=== PATIENT | female | born 1980 | race American Indian/Alaskan Native ===

== ENCOUNTER 2017-02-22 07:14 | Emergency (ER) | payer MEDICAID ==
[2017-02-22 07:28] VITALS: BP 109/58
[2017-02-22] MEDS ORDERED: Sodium Chloride 0.9% 1,000 ML IV ONE (07:52)
[2017-02-22] MEDS ORDERED: Metoclopramide 10 MG/2 ML SDV IVPUSH ONE (07:53)
[2017-02-22] MEDS ORDERED: Ketorolac 30 MG/ML SDV IVPUSH ONE (07:54)
--- NOTE | 2017-02-23 15:22 | ER ---
DATE SEEN: 02/22/2017 HISTORY OF PRESENT ILLNESS: Pat is a 36-year-old woman, who works at [employer] last night and noticed she experienced diarrhea overnight, onset at 1900 hours yesterday, 02/21/2017. She did not vomit but had occasion to spit up. She did not eat anything unusual. Subsequently she had Doritos chips, as she did not think those would be the source for her epigastric discomfort and diarrhea. She had mild left lower quadrant abdominal discomfort and abdominal pain. Last menstrual period 1 week ago, approximately 02/15/2017. Menses are regular. She uses an IUD and is 7, para 5-2-0-5. PAST MEDICAL HISTORY: Significant for right ankle injury, gestational diabetes. Father has diabetes. Mother is alive and well. REVIEW OF SYSTEMS: HEENT: Denies dental problems, headache, neck stiffness, sore throat, sinus congestion. CARDIORESPIRATORY: Negative for shortness of breath, cough, or chest pain. No palpitations or irregular heartbeat. GI: No blood in her stool, no black tarry stools, constipation, previous abdominal surgery, low back pain, or kidney stone history. No frequency, urgency, or dysuria. MUSCULOSKELETAL: The patient states that she had total body myalgia last night, and she treated this with Tylenol. : She had an STD a long time ago. She has currently been with this same pelon for 3 months. She does not think she has an STD, but she gave it some thought. She denies arthritis or rashes. MEDICATIONS: None. ALLERGIES: Sulfa, TMP/SMX. SURGERIES: Negative. OTHER SERIOUS ILLNESSES: Negative. PHYSICAL EXAMINATION: VITAL SIGNS: Blood pressure 109/58, respirations 18, heart rate 102, temperature 36.7 degrees centigrade. CONSTITUTIONAL: The patient is in mild distress. Looks tired - She just finished work at [employer] overnight. HEENT: PERRLA intact. Pharynx is without abnormality. No erythema, no cervical adenopathy, no sinus pressure, no neck stiffness, no cervical adenopathy, no thyromegaly. LUNGS: Clear to auscultation without rales, rhonchi, or wheezes. HEART: S1, S2. Regular rate and rhythm. Tachycardia has relented. ABDOMEN: Soft. No guarding. Mild voluntary guarding left upper quadrant, right mid epigastrium, and left lower quadrant. No right lower quadrant discomfort. Mild suprapubic discomfort. Bowel sounds are slightly increased. No distention. No tinkles. No heel tap rebound. PELVIC: Not performed. No CVA or percussion tenderness. WORKING DIAGNOSES: Possible urinary tract infection, renal stones, , pyelo, enteritis - with diarrhea. LABORATORY FINDINGS: White count is normal at 11,600, but has PMNs with a slight bandemia, 87 PMNs, 6 bands, 6 lymphocytes. Sodium 129, chloride 96. Alkaline phosphatase is normal, and the remainder of the tests are normal. No evidence for elevated bilirubin. Urine test was ordered but unable, because it was not enough urine and she could not provide more urine for us. Urinalysis suggests large leukocyte esterase, 10-20 wbc's, and many bacteria. She has positive urine drug test for amphetamines. The patient denies taking amphetamines, but she has had naproxen and wonders if there is a cross reactivity. ASSESSMENT: 1. Urinary tract infection. 2. Nonspecific abdominal findings with bandemia without leukocytosis. The etiology for the latter indeterminate, rule out appendicitis. 3. Diarrhea possibly causing the bandemia. Diarrhea 5 times last night, more likely enteritis. 4. The patient is /; a single parent. 5. Unable to determine if she is , as there was not enough urine to perform urine test, and the patient was unable to provide urine for test. 6. Urine was sent for chlamydia and GC. I did not do a pelvic exam. PLAN: Treat her urinary tract infection with Keflex 500 mg t.i.d., 30 tablets. I did not provide Pyridium, as she does not have dysuria. Follow up with doctor in a week to 14 days. Also, the patient has agreed to return/come back and get a CAT scan, should she have increased abdominal discomfort, to rule out appendicitis. She was offered a CAT scan and would prefer to hold off getting CAT scan presently and wait to see what her symptoms are, and if suggests getting worse, then she would come back to have it performed. The patient was seen at 0730 hours and time spent with the patient was 40 minutes. /[id number] LS/MODL
== END 2017-02-22 10:05 | disposition home or self-care (01) ==
LOC: FB.ED 07:14
DX: N39.0 Urinary tract infection, site not specified (principal); D72.825 Bandemia; R19.7 Diarrhea, unspecified; Z88.2 Allergy status to sulfonamides
CPT/HCPCS: 80053; 80305; 81001; 83605; 85025; 87491; 87591; 96361; 96374; 96375; 99284; J1885; J2765; J7040

== ENCOUNTER 2017-03-22 16:14 | Emergency (ER) | payer MEDICAID ==
--- NOTE | 2017-03-22 16:52 | EDM.PDOC ---
ED HPI GENERAL MEDICAL PROBLEM - General Chief Complaint: Genitourinary Problem Stated Complaint: POSSIBLE MISCARRIAGE Time Seen by Provider: 03/22/17 16:49 Source of Information: Reports: Patient History Limitations: Reports: No Limitations - History of Present Illness INITIAL COMMENTS - FREE TEXT/NARRATIVE: Pat comes to [facility] ED with some vaginal bleeding post removal of an Mirena IUD yesterday at a [facility] in [place]. She has had spotting from the IUD since implantation 3 years ago. She is uncertain of her LMP, but is concerned she may have been . The Clinic did not perform a test. - Related Data Allergies Allergy/AdvReac Type Severity Reaction Status Date / Time sulfamethoxazole Allergy Rash Verified 03/22/17 18:18 [From ] trimethoprim [From ] Allergy Rash Verified 03/22/17 18:18 Home Meds: Home Meds NK [No Known Home Meds] 03/22/17 [History] Past Medical History Other OB/BYN History: IUD - Past Surgical History Musculoskeletal Surgical History: Reports: ORIF Other Musculoskeletal Surgeries/Procedures:: left ankle Social & Family History - Family History Family Medical History: Noncontributory - Tobacco Use Smoking Status *Q: Current Every Day Smoker Years of Tobacco use: 15 Packs/Tins Daily: 0.5 Used Tobacco, but Quit: No Month Tobacco Last Used: 07-16-2005 Second Hand Smoke Exposure: No - Caffeine Use Caffeine Use: Reports: Energy Drinks Caffeine Use Comment: 2 Red Bulls per day on average - Alcohol Use Days Per Week of Alcohol Use: 0 - Recreational Drug Use Recreational Drug Use: No ED ROS GENERAL - Review of Systems Review Of Systems: ROS reveals no pertinent complaints other than HPI. ED EXAM, RENAL/ - Physical Exam Exam: See Below Exam Limited By: No Limitations General Appearance: Alert, WD/WN, No Apparent Distress Head: Normocephalic Neck: Normal Inspection, Supple, Non-Tender, Full Range of Motion Respiratory/Chest: Lungs Clear Cardiovascular: Regular Rate, Rhythm GI/Abdominal: Normal Bowel Sounds, Soft, Non-Tender, No Organomegaly, No Distention, No Mass (Female) Exam: Normal External Exam Back Exam: Normal Inspection Extremities: Normal Inspection Neurological: Alert, Oriented, CN II-XII Intact, Normal Cognition, Normal Gait, No Motor/Sensory Deficits Psychiatric: Normal Affect, Anxious Skin Exam: Warm, Dry Lymphatic: No Adenopathy Course - Vital Signs Text/Narrative:: The se HCG was negative. DUB most likely etiology. Outpatient labs reviewed from [facility] in [place]. Last Recorded V/S: Last Vital Signs Temp 36.6 C 03/22/17 16:25 Pulse 72 03/22/17 16:25 Resp 18 03/22/17 16:25 BP 164/105 H 03/22/17 16:25 Pulse Ox 100 03/22/17 16:25 - Orders/Labs/Meds Labs: Laboratory Tests 03/22/17 Range/Units 17:00 HCG, Quant < 2 L (2.0 - ) mIU/mL Departure - Departure Time of Disposition: 18:00 Disposition: Home, Self-Care 01 Condition: Good Clinical Impression: Dysfunctional uterine bleeding - Discharge Information Referrals: Amrik Perera MD [Primary Care Provider] - Forms: ED Department Discharge - Problem List & Annotations (1) Dysfunctional uterine bleeding SNOMED Code(s): 37673417 Code(s): N93.8 - OTHER SPECIFIED ABNORMAL UTERINE AND VAGINAL BLEEDING Status: Acute Current Visit: Yes Annotation/Comment:: Dysfunctional uterine bleeding post removal of IUD, no intervention anticipated. - Problem List Review Problem List Initiated/Reviewed/Updated: Yes - Assessment/Plan Plan: Follow up with PCP if needed.
[2017-03-22 19:25] VITALS: BP 141/97
== END 2017-03-22 17:50 | disposition home or self-care (01) ==
LOC: FB.ED 16:14
DX: N93.8 Other specified abnormal uterine and vaginal bleeding (principal); F17.210 Nicotine dependence, cigarettes, uncomplicated; Z98.890 Other specified postprocedural states
CPT/HCPCS: 36415; 84702; 99284